=== PATIENT | male | born 1980 | race Caucasian/White ===

== ENCOUNTER 2018-01-19 04:57 | Day surgery (SDC) | payer OTHER ==
[2018-01-18 13:16] VITALS: BMI 33.7
[2018-01-19 09:04] VITALS: TEMP 98.4
[2018-01-19] MEDS ORDERED: BUPIVACAINE HCL/PF 0.25% (2.5MG/ML) 10 ML VIAL ONE (09:11)
[2018-01-19] MEDS ORDERED: methylPREDNISolone ACET (DEPO) 80 MG/1 ML VIAL ONE (09:11)
[2018-01-19] MEDS ORDERED: MIDAZOLAM HCL 2 MG/2 ML SINGLE DOSE VIAL ONE (09:33)
[2018-01-19] MEDS ORDERED: PROPOFOL 20 ML ONE (09:40)
[2018-01-19] MEDS ORDERED: LIDOCAINE HCL/PF 2% SDV 5ML VIAL ONE (09:40)
[2018-01-19] MEDS ORDERED: methylPREDNISolone ACET (DEPO) 80 MG/1 ML VIAL IJ ONE (09:43)
[2018-01-19] MEDS ORDERED: LIDOCAINE HCL 1% PRESERVATIVE FREE - 30ML VIAL IJ ONE ×2 (09:43)
[2018-01-19] MEDS ORDERED: BUPIVACAINE HCL/PF 0.25% (2.5MG/ML) 10 ML VIAL IJ ONE ×2 (09:43)
[2018-01-19] MEDS ORDERED: METOPROLOL TARTRATE 5 MG/5 ML VIAL ONE (09:46)
--- NOTE | 2018-01-19 10:38 | OP ---
DATE OF OPERATION: 01/19/2018 PREOPERATIVE DIAGNOSIS: L5-S1 disc disease with lower back pain and right lumbar radiculopathy. POSTOPERATIVE DIAGNOSIS: L5-S1 disc disease with lower back pain and right lumbar radiculopathy. ATTENDING SURGEON: Jan Fallon MD ANESTHESIA: Local with IV sedation. ANESTHESIOLOGIST: Lonnie Ocampo MD INDICATIONS: The patient is a 37-year-old male with intractable lower back pain and right lower extremity radiculopathy. Because of the intractable symptoms and failure of conservative treatment, he is here for the first epidural steroid injection. He has sustained a work-related injury. The risks of the procedure include, but are not limited to, bleeding, infection, spinal headache, and neurological injury. The patient understands and agrees to the procedure, discussing the procedure in detail, risks and benefits, and alternative treatments for his lumbar condition, and he wishes to proceed. No guarantees were given for a favorable outcome. PROCEDURE IN DETAIL: After the patient was taken to the operating room, he was placed in the prone position with pillow under his hip. Lumbar region was cleaned with alcohol and prepped with Betadine. A skin wheal was raised with 5 mL of 1% Xylocaine, and a 22-gauge 3.5-inch spinal needle was inserted under AP and lateral fluoroscopic guidance from a right-sided approach to near the center of spinal canal on the right side of L5-S1. The needle bevel was turned cephalad and laterally. Loss of resistance technique was utilized. There was no CSF or blood backflow. The entire needle length was needed to access the epidural space because of the patients size. Depo-Medrol 80 mg and 1 mL of 0.25% Marcaine were injected, and the needle was withdrawn and sterile bandage was applied. The patient tolerated the procedure well and was turned back to the supine position, moving bilateral lower extremities well. He did not complain of headache. JAN FALLON M.D. SEAMUS/[id number]
[2018-01-19 11:28] VITALS: BP 150/99; PULSE 84
== END 2018-01-19 11:37 | disposition home or self-care (01) ==
LOC: JASU-SURG 04:57
PROVIDERS: ATTEND Neurological Surgery
PROC: 3E0R3BZ Introduction of Anesthetic Agent into Spinal Canal, Percutaneous Approach (ICD-10-PCS; 2018-01-19)
PROC: B01BZZZ Fluoroscopy of Spinal Cord (ICD-10-PCS; 2018-01-19)
PROC: 3E0R33Z Introduction of Anti-inflammatory into Spinal Canal, Percutaneous Approach (ICD-10-PCS; principal; 2018-01-19 09:30)
DX: M54.16 Radiculopathy, lumbar region (principal); M51.9 Unspecified thoracic, thoracolumbar and lumbosacral intervertebral disc disorder; M54.5 Low back pain
CPT/HCPCS: 76000-TC-FY

== ENCOUNTER 2018-06-13 05:10 | Inpatient (IN) | payer OTHER ==
[~2018-06-13 05:10] MED LIST: BACITRACIN 15 GM TUBE TOPICAL OINTMENT TP ONE; BUPIVACAINE HCL/PF 0.5% (5MG/ML) 10 ML VIAL NR ONE
[2018-06-13 09:45] VITALS: BMI 34.1
[2018-06-13] MEDS ORDERED: BUPIVACAINE HCL/PF 0.5% (5MG/ML) 10 ML VIAL ONE (11:01)
[2018-06-13] MEDS ORDERED: BACITRACIN 15 GM TUBE TOPICAL OINTMENT ONE (11:01)
[2018-06-13] MEDS ORDERED: MIDAZOLAM HCL 2 MG/2 ML SINGLE DOSE VIAL ONE (11:12)
[2018-06-13] MEDS ORDERED: PROMETHAZINE HCL 25 MG/1 ML VIAL IVPB PRN (11:23)
[2018-06-13] MEDS ORDERED: DEXAMETHASONE SOD PHOSPHATE 4 MG/1 ML VIAL IVPUSH PRN (11:23)
[2018-06-13] MEDS ORDERED: ONDANSETRON 4 MG/2 ML VIAL IVPUSH PRN (11:23)
[2018-06-13] MEDS ORDERED: ceFAZolin SODIUM 1 GM VIAL ONE (11:43)
[2018-06-13] MEDS ORDERED: LIDOCAINE HCL/PF 2% SDV 5ML VIAL ONE (11:43)
[2018-06-13] MEDS ORDERED: fentaNYL CITRATE 250 MCG/5 ML VIAL ONE ×2 (11:44→12:32)
[2018-06-13] MEDS ORDERED: PROPOFOL 20 ML ONE ×24 (11:46→15:50)
[2018-06-13] MEDS ORDERED: ROCURONIUM BROMIDE 50 MG/5 ML VIAL ONE (11:47)
[2018-06-13] MEDS ORDERED: ceFAZolin SODIUM 1 GM VIAL IVPB ONE (12:10)
[2018-06-13] MEDS ORDERED: THROMBIN (BOVINE) 5,000 UNIT VIAL TP ONE (12:33)
[2018-06-13] MEDS ORDERED: BACITRACIN 50,000 UNITS VIAL NR ONE (12:33)
[2018-06-13] MEDS ORDERED: DEXAMETHASONE SOD PHOSPHATE 4 MG/1 ML VIAL ONE (16:18)
[2018-06-13] MEDS ORDERED: BUPIVACAINE HCL/PF 0.5% (5MG/ML) 10 ML VIAL NR ONE (16:20)
[2018-06-13] MEDS ORDERED: BISACODYL 10 MG SUPP.RECT RC PRN (16:25)
[2018-06-13] MEDS ORDERED: ACETAMINOPHEN 325 MG TABLET (FP) PO PRN (16:25)
--- NOTE | 2018-06-13 16:25 | OP ---
Operative Note - Note: Operative Date: 06/13/18 Pre-Operative Diagnosis: L5-S1 spondylolisthesis, stenosis, DDD, radiculopathy Operation: B L5 and partial B S1 laminectomies for decompression, L5-S1 discectomy, interbody fusion, interbody implants x2; Posterolateral fusion B L5- S1; pedicle screw fixation system R L5-S1; microdissection; fluorosocopy Findings: Extremely deep exposure to L5-S1; Sensitive B lumbar roots L5-S1; L5-S1 severe disc space narrowing; L5-S1 spondyololisthesis; R L5/S1 EMG threshold mAmp Implants: [employer] Spine Shena 4.5 system (6.5 x 45 mm R L5 and 7.5 x 40 mm screw R S1); B 11 x25 interbody implants Post-Operative Diagnosis: Same as Pre-op Surgeon: Scar Shaikh Hothouse Worker: Yousif Rendon Anesthesiologist/HR ADVISOR: Km Brandt Anesthesia: General Estimated Blood Loss (mls): 300 Operative Report Dictated: Yes
[2018-06-13] MEDS ORDERED: D5-1/2NS+20 MEQ KCL - 1,000 ML IV SCH (16:30)
[2018-06-13] MEDS ORDERED: BACITRACIN 15 GM TUBE TOPICAL OINTMENT TP ONE (16:38)
--- NOTE | 2018-06-13 16:47 | SURG ---
Surgery Pony Roll Finisher Note Pony Roll Finisher: Yousif Rendon PA-C Date of Service: 06/13/18 Diagnosis: L4/5 spondylisthesis, stenosis Procedure: B L5 and partial B S1 laminectomies for decompression, L5-S1 discectomy, interbody fusion, interbody implants x2; Posterolateral fusion L5-S1; pedicle screw fixation system R L5-S1; microdissection; fluorosocopy I was present for the entirety of the operative procedure. For further detail, please refer to operative report.
--- NOTE | 2018-06-13 16:58 | PROC ---
Procedure Note Procedure: Procedure: Russ catheter placement Pt had russ placed in the OR using sterile technique without incident.
--- NOTE | 2018-06-13 17:12 | PN ---
Progress Note (short form) - Note Progress Note: NEUROSURGERY In PACU Still sleepy AF, VSS; O2 sat 100% PE: CV- RRR; Lungs- CTA; Abd- benign; Ext- no sign of DVT Motor- B LE at least 4/5; Sensation- mild R L5 numbness LT Drain working Findings and operative details including unilateral pedicel screw implant only d /w in waiting area Labs pending OOB only with LSO
[2018-06-13] MEDS ORDERED: HYDROmorphone *PCA* 10MG/50ML DISP.SYRIN PCA ONE (17:26)
[2018-06-13] MEDS: D5-1/2NS+20 MEQ KCL - 20 MEQ/1,000 ML INFUS.BAG IV SCH (17:49)
[2018-06-13] MEDS: HYDROmorphone *PCA* 10MG/50ML DISP.SYRIN PCA SCH (17:49)
[2018-06-13 17:54] LABS: HEMATOCRIT 47.7 % (35.4-49); HEMOGLOBIN 16.2 GM/dL (11.7-16.9); MCH 30.9 pg (25.7-33.7); MEAN CELL VOLUME 90.9 fl (80-96); MEAN PLT VOLUME 10.4 fl (7.5-11.1); PLATELET COUNT 136 K/MM3 (134-434); RBC 5.25 M/mm3 (4.00-5.60); RDW 12.6 % (11.9-15.9); WHITE BLOOD COUNT 5.9 K/mm3 (4.0-10.0)
[2018-06-13 18:13] LABS: ANION GAP 6 MMOL/L (8-16); BLOOD UREA NITROGEN 15 mg/dL (7-18); CALCIUM 8.7 mg/dL (8.5-10.1); CHLORIDE 105 mmol/L (98-107); CO2 28 mmol/L (21-32); CREATININE 1.2 mg/dL (0.55-1.3); GLUCOSE,RANDOM 113 mg/dL (74-106); POTASSIUM 4.8 mmol/L (3.5-5.1); SODIUM 138 mmol/L (136-145)
[2018-06-13] MEDS: CEFAZOLIN 1 GM in DEXTROSE 5%-WATER - 50 ML IVPB SCH (23:00)
[2018-06-14] MEDS ORDERED: ceFAZolin SODIUM 1 GM VIAL ONE ×5 (00:03→20:11)
[2018-06-14] MEDS ORDERED: DEXTROSE 5%-WATER - 50 ML IVPB ONE ×4 (00:04→20:11)
[2018-06-14] MEDS: GABAPENTIN 300 MG CAPSULE (FP) PO SCH ×4 (00:07→21:39)
[2018-06-14] MEDS: diazePAM 5 MG TABLET PO SCH ×5 (00:07→21:39)
[2018-06-14] MEDS: DOCUSATE SODIUM 100 MG CAPSULE (FP) PO SCH ×4 (00:07→21:39)
[2018-06-14] MEDS: D5-1/2NS+20 MEQ KCL - 20 MEQ/1,000 ML INFUS.BAG IV SCH ×2 (03:27→14:00)
[2018-06-14] MEDS: CEFAZOLIN 1 GM in DEXTROSE 5%-WATER - 50 ML IVPB SCH ×4 (03:28→20:20)
--- NOTE | 2018-06-14 06:29 | OP ---
DATE OF OPERATION: 06/13/2018 PREOPERATIVE DIAGNOSES: 1. L5-S1 spondylolisthesis. 2. Broad-based disk protrusion, L5-S1, left greater than right. 3. Spinal instability. 4. Bilateral lumbar radiculopathy, right greater than left, with right lower extremity weakness. POSTOPERATIVE DIAGNOSES: 1. L5-S1 spondylolisthesis. 2. Broad-based disk protrusion, L5-S1, left greater than right. 3. Spinal instability. 4. Bilateral lumbar radiculopathy, right greater than left, with right lower extremity weakness. ATTENDING SURGEON: Scar Shaikh MD PROCEDURES: 1. Bilateral L5 laminectomy and facetectomy, including bilateral foraminotomies at L5-S1 as well as partial bilateral S1 laminectomy (53492-79, 40297). 2. [place] autologous lamina spinous process and facet bone for interbody and posterolateral fusion (24953). 3. Microsurgical dissection with operating microscope with microsurgical techniques (18615). 4. Posterior lumbar diskectomy L5-S1 bilaterally. 5. Posterior lumbar interbody fusion, L5-S1 (69039). 6. Utilization of intervertebral bony prosthetic device at L5-S1 (96927). 7. Posterior lumbar pedicle screw fixation system with [employer] Spine Shena 4.5 titanium system (6.5 x 45-mm screw at right L5 and 7.5 x 40-mm screw at right S1 , connected with 35-mm zunilda and locked down with locking screws) (68932). 8. Intraoperative fluoroscopy for localization of pedicle screw placement (69070-13). 9. Posterolateral bone graft fusion bilaterally at L5-S1 with autologous laminar spinous process bone ([id number]). FINDINGS: 1. L5-S1 retrolisthesis 2. Marked degenerative disk space narrowing at L5-S1. 3. Sensitive lumbar nerve roots, L5-S1, left greater than right. INDICATIONS: The patient is a 37-year-old male with intractable lower back pain and lumbar radiculopathy. Because of his intractable symptoms and failure of conservative treatment, he is now consented for lumbar decompression and fusion with instrumentation. The risks of procedure included, but are not limited to, bleeding, infection, dural tear with CSF leak, neurological injury, increase of thromboembolic risks, and other risks of general anesthesia. The patient understands the indications for the procedure, procedure in detail, risks and benefits and alternatives for treatment of his lumbar condition, and wished to proceed with surgery. No guarantees were given for a favorable outcome. The patient had had preoperative weakness, numbness as well as pain. Intraoperative SSEP and EMG monitoring were carried out. PROCEDURE IN DETAIL: After the patient was taken to the operating room, he was placed in supine position. After general anesthesia was induced and appropriate lines were placed, a Pete catheter was inserted. The patient was then turned in a prone position on a Royal frame. All pressure points were checked and padded. Lumbar region was cleaned with alcohol and prepped with Betadine. A localizing x-ray was obtained with a spinal needle near the L5-S1 level. An approximately 3.5-inch incision was opened from L4 to S1. Subperiosteal dissection was carried out bilaterally with periosteal elevator and monopolar electrocautery. An extremely deep exposure was encountered, and very deep extractions were needed in order to gain access to the lamina from L4 to S1. The facet joints at L4-L5 were skeletonized and preserved, and L5-S1 facet joint was similarly skeletonized and preserved. A localizing x-ray was obtained with a clamp at the bottom of L5 lamina. After position was verified, the interspinous and supraspinous ligament was resected with a Leksell rongeur. The nerve roots were quite irritable, especially on the left side to any sort of monopolar electrocautery stimulation even before laminectomy was performed. The spinous process at L5 was resected and was kept to be morcellized by a bone mill for bone graft purposes later on. Complete laminectomy was carried out to L5 as well as facetectomy and the foraminotomy. The neural foramen was quite tight on the left side, and a fair amount of facetectomy was needed to be done to decompress the lateral recess. A partial bilateral S1 laminectomy also was carried out. Now, the thecal sac as well as bilateral L5-S1 nerve roots was decompressed. Epidural hemostasis was obtained with bipolar electrocautery and thrombin-soaked powdered Gelfoam to S1 nerve root. The S1 nerve root was dissected free with a Boyle. There was moderate epidural fibrosis noted. After the nerve root was dissected free with gentle retraction with a nerve retractor, disk annulus was incised with a No. 15 blade. A serially larger disk space distractor from 6 up to 9 mm was used. The disk space was very difficult to enter. A 10-mm distractor was placed on the left side, and attention turned to the right-sided disk space, under which gentle S1 nerve root retraction, the annulus was then re-incised and then disk space distractor up to 11 mm was used on the right side. A 12-mm distractor was then placed on the right side. Attention was then turned to the left-sided disk space again. All disk material was cleaned with a curette. It was also cleaned by scraper up to 11 mm. An 11-mm x 25-mm interbody implant was placed and countersunk by about 5 mm. The procedure was repeated on the right side, where a central portion of disk space was cleaned with downgoing curette and upgoing pituitary rongeur. It was then packed with autologous morcellized bone graft which was processed with bone mill. Another 11-mm x 25- mm interbody implant was placed and countersunk by 3-4 mm on the right. Epidural hemostasis was obtained with thrombin-soaked powdered Gelfoam and bipolar electrocautery. The wound was irrigated with a copious amount of irrigation and antibiotic during irrigation. This portion of the procedure was performed with the use of the operative microscope, both illumination and magnification, and microsurgical techniques were utilized. The fluoroscope was then brought into the AP position , and the patient appeared to be true AP position. It was then turned over in the lateral position and then was draped sterilely. The anterior point of the pedicle screw at L5-S1 was marked with a high-speed pneumatic drill. The screw holes were first awled and then tapped. The screw holes were then palpated with a probe, and there was no breach in pedicle both side of L5 and S1; 6.5-mm x 40-mm screws used at L5 and then 7.5-mm x 40-mm screws were used at S1. This was done with lateral fluoroscopic guidance. The images showed the screws to be in good position. EMG threshold was 20 mA on the right L5 and 14 mA on left L5. The left-sided thresholds were less than 10 mA, however. The pedicles were palpated. There was no obvious breach; however , upon repeating stimulation, the left-sided nerve roots were still quite irritable. This is despite demonstration of good position on the fluoroscopic imaging of the left sided implants. It was decided to remove these screws as a result. Attempt was made to redirect the screw at S1, but that was not successful. It was, therefore, decided to leave the right-sided implant only in. The wound was, once again, irrigated with antibiotic-containing irrigation, and the spinal canal and the neural foramen were decompressed further with angled curette and Kerrison rongeur. The left-sided neural foramen was tighter than the right, as stated previously. The screws were lined up, and a 35-mm zunilda was loaded on top of the screws and locked down with locking screws. The screws were slightly compressed prior to final tightening. A torque wrench and a counter-torque wrench were used for final tightening. At this point, the wound was irrigated with a copious amount of antibiotic irrigation. A piece of Surgicel was laid in the epidural space. Then, 10 mL 0.5% Marcaine was injected in the paraspinal muscles. Dorsal lumbar hemostasis was obtained with bipolar electrocautery. Dorsal lumbar musculature was approximated with 0 Vicryl suture. An epidural round J-P drain was left in place and this was hooked up to a suction bulb, which came through a left-sided separate stab incision. The posterolateral aspect of the spine was then decorticated with a high-speed pneumatic drill, and a bone graft was then used for the posterolateral fusion at L5-S1. After the fascia was closed, the subcutaneous fascia was closed 3-0 Vicryl suture and the skin was closed with 4-0 Vicryl running subcuticular suture. Steri-Strips and a sterile occlusive dressing were applied. The patient tolerated the procedure well and was logrolled back to a supine position. He was moving bilateral lower extremities well in the recovery room. All needles and lap counts were correct. Intraoperative SSEP and EMG signals remained stable throughout. The patient received one dose of 2 g of Ancef prior to the incision. OR timeout procedure was followed. The patient's was updated as to the intraoperative findings as well as the details of the procedure, including instrumentation system placed. Carl [id number] MTDD
--- NOTE | 2018-06-14 07:47 | PN ---
Progress Note (short form) - Note Progress Note: NEUROSURGERY POD #1 On 6 S Incisional pain less than expected Mild R foot numbness, not left On HAND I THERMAL CUTTER and valium Tmax 98.3, AF, VSS PE: CV- RRR; Lungs- CTA; Abd- benign; Ext- no sign of DVT Motor- B LE at least 4/5; Sensation- mild R L5 numbness LT Wound with serosangrenous drainage, dressing changed Drain 150/40 (yesterday/today) WBC 5.9, Hgb 16.2, Cr 1.2 Findings and operative details including unilateral pedicel screw implant only d /w pt Adv diet Cont Pete today D/c wound drain tomorrow Log roll only, do not turn suddenly OOB only with LSO (brace use demonstrated) Instructions given to pt and RN at bedside Cont Ancef as drain is still in place
[2018-06-14] MEDS ORDERED: FLU VACCINE QUAD 60 MCG/0.5 ML (MDV 18-19) IM ONE ×2 (10:00→20:45)
--- NOTE | 2018-06-14 11:25 | PN ---
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 - Current Medication List Current Medications: Active Medications Acetaminophen (Tylenol -) 650 mg PO Q6H PRN PRN Reason: FEVER Bisacodyl (Dulcolax Suppository -) 10 mg RC DAILY PRN PRN Reason: CONSTIPATION Diazepam (Valium -) 10 mg PO TID [facility] Last Admin: 06/14/18 07:48 Dose: Not Given Docusate Sodium (Colace -) 100 mg PO TID [facility] Last Admin: 06/14/18 06:17 Dose: 100 mg Gabapentin (Neurontin -) 300 mg PO TID [facility] Last Admin: 06/14/18 06:17 Dose: 300 mg Hydromorphone HCl (Dilaudid Grocery Specialist -) 10 mg PONY EDGER PONY EDGER [facility]; Protocol Stop: 06/20/18 11:23 Last Admin: 06/13/18 17:49 Dose: 10 mg Potassium Chloride/Dextrose/Sod Cl (D5-1/2ns+20 Meq Kcl -) 20 meq in 1,000 mls @ 100 mls/hr IV ASDIR RONEY Last Admin: 06/14/18 03:27 Dose: 100 mls/hr Potassium Chloride/Dextrose/Sod Cl (D5-1/2ns+20 Meq Kcl -) 1,000 mls @ 42 mls/ hr IV ASDIR [facility] Cefazolin Sodium 1 gm/ (Dextrose) 50 mls @ 100 mls/hr IVPB Q6H-IV RONEY Ondansetron HCl (Zofran Injection) 4 mg IVPUSH Q4H PRN PRN Reason: NAUSEA AND/OR VOMITING Stop: 06/14/18 11:22 Promethazine HCl (Phenergan Injection -) 12.5 mg IVPB Q6H PRN PRN Reason: NAUSEA AND/OR VOMITING - Objective Vital Signs: Vital Signs Temperature 98.2 F 06/14/18 06:00 Pulse Rate 84 06/14/18 06:00 Respiratory Rate 20 06/14/18 06:00 Blood Pressure 122/64 06/14/18 06:00 O2 Sat by Pulse Oximetry (%) 96 06/13/18 21:00 Constitutional: Yes: Well Nourished Cardiovascular: Yes: WNL Respiratory: Yes: WNL Gastrointestinal: Yes: WNL Labs: CBC, BMP 10/01/18 17:35 06/13/18 17:35 Assessment/Plan Pain controlled, complained of slight nausea with clear liquid diet this morning , will continue commercial drone pilot until tolerating po better. dept of anesthesiology will continue to follow
[2018-06-14] MEDS ORDERED: ONDANSETRON 4 MG/2 ML VIAL IVPUSH PRN (12:08)
[2018-06-14] MEDS: HYDROmorphone *PCA* 10MG/50ML DISP.SYRIN PCA SCH ×2 (12:38→20:15)
[2018-06-14] MEDS ORDERED: PROCHLORPERAZINE INJECTION 10 MG/2 ML VIAL IVPB PRN (16:13)
[2018-06-14] MEDS ORDERED: DEXAMETHASONE SOD PHOSPHATE 4 MG/1 ML VIAL IVPUSH ONE (16:15)
[2018-06-15] MEDS: D5-1/2NS+20 MEQ KCL - 20 MEQ/1,000 ML INFUS.BAG IV SCH (01:00)
[2018-06-15] MEDS ORDERED: ceFAZolin SODIUM 1 GM VIAL ONE ×4 (02:40→21:08)
[2018-06-15] MEDS ORDERED: DEXTROSE 5%-WATER - 50 ML IVPB ONE ×4 (02:42→21:08)
[2018-06-15] MEDS: CEFAZOLIN 1 GM in DEXTROSE 5%-WATER - 50 ML IVPB SCH ×4 (02:52→21:32)
[2018-06-15] MEDS: GABAPENTIN 300 MG CAPSULE (FP) PO SCH ×3 (05:55→21:30)
[2018-06-15] MEDS: diazePAM 5 MG TABLET PO SCH ×3 (05:55→21:29)
[2018-06-15] MEDS: DOCUSATE SODIUM 100 MG CAPSULE (FP) PO SCH ×4 (05:55→21:45)
[2018-06-15] MEDS ORDERED: TAPENTADOL HYDROCHLORIDE 50 MG TABLET PO PRN (08:52)
--- NOTE | 2018-06-15 08:53 | PN ---
Progress Note (short form) - Note Progress Note: NEUROSURGERY POD #2 On 6 S Nausea yesterday from MANAGER E LEARNING or anesthesia? OOB with brace yesterday Incisional pain No sciatica R foot numbness better , not left On MANAGER E LEARNING and valium Tmax 98.6, AF, VSS PE: CV- RRR; Lungs- CTA; Abd- benign; Ext- no sign of DVT Motor- B LE at least 4+/5 except chronic R EHL weakness 3; Sensation- mild R L5 numbness LT Wound with minimal serosangrenous drainage, dressing changed Drain 160/30 (yesterday/today)- removed Adv diet Bowel regimen Log roll only, do not turn suddenly OOB only with LSO (brace use emphasized) D/C Ancef D/C MANAGER E LEARNING Nucynta for pain
[2018-06-15] MEDS ORDERED: MAGNESIUM HYDROX 2400MG/30ML ORAL SUSPENSION 30 ML CUP PO ONE (10:45)
[2018-06-15] MEDS: TAPENTADOL HYDROCHLORIDE 50 MG TABLET PO PRN ×3 (12:17→21:30)
--- NOTE | 2018-06-15 13:13 | PN ---
Progress Note (short form) - Note Progress Note: Anesthesia Pt seen and examined S:alert and awake comfortable O: Vital Signs Temperature 98.7 F 06/15/18 11:13 Pulse Rate 94 H 06/15/18 11:13 Respiratory Rate 20 06/15/18 11:13 Blood Pressure 133/80 06/15/18 11:13 O2 Sat by Pulse Oximetry (%) 97 06/14/18 20:35 CBC, BMP 06/13/18 17:35 06/13/18 17:35 A/P s/p PLIF L5-S1 EVENT MARKETING COORDINATOR stopped Doing well post op Continue current care Jorge Villalobos MD
[2018-06-15] MEDS ORDERED: TAPENTADOL HYDROCHLORIDE 75 MG TABLET PO PRN (17:43)
[2018-06-15] MEDS ORDERED: diazePAM 5 MG TABLET PO ONE (17:45)
--- NOTE | 2018-06-15 18:32 | PATH ---
Surgical Pathology Report Patient Name: ARPIT GU [facility]. Rec. #: [id number] /Age/Gender: 1980 (Age: 37) / M Account: [id number] Location: [address] [place] [address]/[facility] Taken: 06/13/2018 Received: 06/14/2018 Reported: 06/15/2018 Physicians: Scar Shaikh M.D. Specimen(s) Received DISC L5-S1 AND ENDPLATE Clinical History Lumbar radiculopathy/spondylolisthesis Final Diagnosis DISC, L5-S1 AND END PLATE, POSTERIOR INTERBODY FUSION: BENIGN INTERVERTEBRAL DISC TISSUE AND BONE. Electronically Signed Meg Bowers M.D. Gross Description Received in formalin, labeled "Disc, L5-S1 and end plate" are multiple fragments of [place] fibrocartilaginous tissue and bone which measure 4 x 3 x 1 cm in aggregate. Equipment Records Supervisor sections are submitted after brief decalcification in one cassette. [email or web address]/06/14/2018 irma/06/14/2018
[2018-06-16] MEDS ORDERED: ceFAZolin SODIUM 1 GM VIAL ONE ×2 (02:08→07:58)
[2018-06-16] MEDS ORDERED: DEXTROSE 5%-WATER - 50 ML IVPB ONE ×2 (02:08→07:58)
[2018-06-16] MEDS: TAPENTADOL HYDROCHLORIDE 50 MG TABLET PO PRN ×2 (02:19→09:45)
[2018-06-16] MEDS: CEFAZOLIN 1 GM in DEXTROSE 5%-WATER - 50 ML IVPB SCH ×2 (02:20→08:03)
[2018-06-16] MEDS: diazePAM 5 MG TABLET PO SCH (05:55)
[2018-06-16] MEDS: DOCUSATE SODIUM 100 MG CAPSULE (FP) PO SCH (05:55)
[2018-06-16] MEDS: GABAPENTIN 300 MG CAPSULE (FP) PO SCH (05:55)
--- NOTE | 2018-06-16 07:27 | PN ---
Progress Note (short form) - Note Progress Note: NEUROSURGERY POD #3 On 6 S OOB with brace yesterday Incisional pain Probably overdoing it, asked pt to take it easy No sciatica R foot numbness better , not left On CAREER SPECIALIST and valium Tmax 101, AF this am, VSS PE: CV- RRR; Lungs- CTA; Abd- benign; Ext- no sign of DVT Motor- B LE at least 4+/5 except prior R EHL weakness 2-3; Sensation- mild R L5 numbness LT Wound with no drainage, dressing changed Bowel regimen Log roll only, do not turn suddenly OOB only with LSO (brace use emphasized) Activities reviewed in detail Nucynta for pain, on 75 mg Home on valium and nucynta if temp normal this am and CBC OK Keflex x 1 week
[2018-06-16 08:04] LABS: BASO % 0.6 % (0-2.0); EOS % 1.5 % (0-4.5); HEMATOCRIT 41.1 % (35.4-49); HEMOGLOBIN 13.8 GM/dL (11.7-16.9); MCH 30.6 pg (25.7-33.7); MCHC 33.5 g/dl (32.0-35.9); MEAN CELL VOLUME 91.4 fl (80-96); MONO % 9.4 % (3.8-10.2); NEUT % 57.5 % (42.8-82.8); PLATELET COUNT 111 K/MM3 (134-434); RBC 4.49 M/mm3 (4.00-5.60); RDW 12.5 % (11.9-15.9)
[2018-06-16 09:00] VITALS: BP 141/84; PULSE 110; TEMP 99.3
== END 2018-06-16 11:10 | disposition home health service (06) | DRG 304 ==
LOC: JSAMEDAYSX 05:10 → J6S 19:45
PROVIDERS: ADMIT Neurological Surgery; ATTEND Neurological Surgery
PROC: 0SB40ZZ Excision of Lumbosacral Disc, Open Approach (ICD-10-PCS; 2018-06-13)
PROC: 0SG3071 Fusion of Lumbosacral Joint with Autologous Tissue Substitute, Posterior Approach, Posterior Column, Open Approach (ICD-10-PCS; 2018-06-13)
PROC: 0SG30AJ Fusion of Lumbosacral Joint with Interbody Fusion Device, Posterior Approach, Anterior Column, Open Approach (ICD-10-PCS; principal; 2018-06-13 10:00)
DX: M43.17 Spondylolisthesis, lumbosacral region (principal); M48.07 Spinal stenosis, lumbosacral region; M54.16 Radiculopathy, lumbar region
CPT/HCPCS: 36415; 72100-TC-FY; 76000-TC-FY; 80048; 85025; 85027; 86850; 86900; 86901; 88304-TC; 88311-TC; 90688; 94760; 97116-GP; 97161-GP; G0008